=== PATIENT | male | born 1945 | race Caucasian/White ===

== ENCOUNTER → 2017-03-09 | Day surgery (SDC) | payer OTHER ==
[~2017-03-09] MED LIST: ADRENALINE CHL INJ IJ ONE; AK-DILATE 2.5% OPHTH 1 DOSE OP ONE; ALPHAGAN-P OPHTH 1 DOSE AFFEYE ONE; BETADINE OPHTH SOLN 5% EACHEYE ONE; BSS OPHTH (PLAIN) 500 ML with VANCOMYCIN HCL 500 MG VIAL 25 MG, ADRENALINE CHL INJ 1 MG IR ONE; CYCLOGYL 1% OPHTH 1 DOSE OP ONE; DUOVISC IO ONE; MYDRIACIL OPHTH 1 DOSE AFFEYE ONE; NS 500 ML IV 500 ML IV ONE; PROLENSA OPHTH 1 DOSE AFFEYE ONE; TETRACAINE 0.5% OPHTH 1 DOSE AFFEYE ONE; VIGAMOX 0.5% OPHTH 1 DOSE AFFEYE ONE; XYLOCAINE-MPF 1% IJ ONE
[2017-03-09 15:29] VITALS: BP 155/80
== END | disposition home or self-care (01) ==
LOC: SURG1 10:19
PROVIDERS: ATTEND Ophthalmology
PROC: 08DK3ZZ Extraction of Left Lens, Percutaneous Approach (ICD-10-PCS; principal; 2017-03-09 19:15)
PROC: 08RK3JZ Replacement of Left Lens with Synthetic Substitute, Percutaneous Approach (ICD-10-PCS; principal; 2017-03-09 19:15)
DX: H25.12 Age-related nuclear cataract, left eye (principal); H25.012 Cortical age-related cataract, left eye
CPT/HCPCS: 99100; A4217; J0170; J3370

== ENCOUNTER 2017-03-23 07:32 | Day surgery (SDC) | payer OTHER ==
[2017-03-23] MEDS ORDERED: TETRACAINE 0.5% OPHTH 1 DOSE AFFEYE ONE ×3 (08:30→10:44)
[2017-03-23] MEDS ORDERED: NS 500 ML IV 500 ML IV ONE (08:32)
[2017-03-23] MEDS ORDERED: VIGAMOX 0.5% OPHTH 1 DOSE AFFEYE ONE ×5 (08:35→10:55)
[2017-03-23] MEDS ORDERED: PROLENSA OPHTH 1 DOSE AFFEYE ONE (08:46)
[2017-03-23] MEDS ORDERED: ALPHAGAN-P OPHTH 1 DOSE AFFEYE ONE (08:47)
[2017-03-23] MEDS ORDERED: MYDRIACIL OPHTH 1 DOSE AFFEYE ONE ×3 (08:49→08:51)
[2017-03-23] MEDS ORDERED: AK-DILATE 2.5% OPHTH 1 DOSE OP ONE ×3 (08:49→08:51)
[2017-03-23] MEDS ORDERED: CYCLOGYL 1% OPHTH 1 DOSE OP ONE ×3 (08:49→08:51)
[2017-03-23] MEDS ORDERED: BETADINE OPHTH SOLN 5% EACHEYE ONE (10:35)
[2017-03-23] MEDS ORDERED: XYLOCAINE-MPF 1% IJ ONE (10:44)
[2017-03-23] MEDS ORDERED: ADRENALINE CHL INJ IJ ONE (10:44)
[2017-03-23] MEDS ORDERED: BSS OPHTH (PLAIN) 500 ML with VANCOMYCIN HCL 500 MG VIAL 25 MG, ADRENALINE CHL INJ 1 MG IR ONE ×3 (10:44)
[2017-03-23] MEDS ORDERED: DUOVISC IO ONE (10:44)
[2017-03-23 14:31] VITALS: BP 152/83
== END 2017-03-23 11:20 | disposition home or self-care (01) ==
LOC: SURG1 07:32
PROVIDERS: ATTEND Ophthalmology
PROC: 08RK3JZ Replacement of Left Lens with Synthetic Substitute, Percutaneous Approach (ICD-10-PCS; principal; 2017-03-23 12:00)
PROC: 08DK3ZZ Extraction of Left Lens, Percutaneous Approach (ICD-10-PCS; principal; 2017-03-23 12:00)
DX: H25.11 Age-related nuclear cataract, right eye (principal); H25.011 Cortical age-related cataract, right eye
CPT/HCPCS: 99100; A4217; J0170; J3370